=== PATIENT | male | born 1950 | race African-American/Black ===

== ENCOUNTER 2017-02-10 18:18 | Inpatient (IN) | payer MEDICARE, OTHER ==
[~2017-02-10] VITALS: Ht 188 cm; Wt 113.9 kg
[~2017-02-10 18:18] MED LIST: GLIP1TAB5 PO; HYDR-2726 PO; PIOG30TA PO; SITA100T8 PO
[2017-02-10 18:38] VITALS: BP 163/90
--- NOTE | 2017-02-10 19:19 | NUR ---
AMBULATED TO ER BED 2
--- NOTE | 2017-02-10 19:20 | NUR ---
66 Y/O M W/C/O CHEST/L NECK/L UPPER BACK PAIN SINCE THIS MORNING. MED HX CHRONIC BACK/NECK PAIN, HTN, AND DM. VSS, SINUS RHYTHM, ER MD MADE AWARE.
[2017-02-10] MEDS ORDERED: ASPIRIN 81 MG TAB.CHEW PO ONE (20:00)
[2017-02-10] MEDS ORDERED: NITROGLYCERIN 2% 1 GM PKT TP ONE (20:00)
[2017-02-10] MEDS ORDERED: NACL 0.9% 1,000 ML IV ONE (20:00)
[2017-02-10 20:30] LABS: MEAN CORPUSCULAR HEMOGLOBIN 24 pg (27-31)
[2017-02-10] MEDS ORDERED: MORPHINE SULFATE 2 MG/ML SYR IVP ONE (20:35)
[2017-02-10 20:36] LABS: HEMATOCRIT 42.5 % (36-52); HEMOGLOBIN 13.1 g/dL (12.0-18.0); MEAN CORPUSCULAR HGB CONC 31 g/dL (33-37); MEAN CORPUSCULAR VOLUME 79 fL (80-94); PLATELET COUNT (AUTO) 214 K/uL (140-450); RED BLOOD CELL COUNT(AUTO) 5.37 MIL/uL (4.20-6.10); RED CELL DISTRIBUTION WIDTH 17.4 % (11.6-13.7); WHITE BLOOD COUNT (AUTO) 5.7 K/uL (4.8-10.8)
[2017-02-10] MEDS ORDERED: ONDANSETRON 4 MG/2 ML VIAL IVP ONE (20:40)
[2017-02-10 20:46] LABS: ANION GAP 13.9 (8-16); CARBON DIOXIDE 25.5 mmol/L (21-32); CREATININE 1.4 mg/dL (0.7-1.3); POTASSIUM 4.4 mmol/L (3.5-5.1)
[2017-02-10] MEDS ORDERED: MORPHINE SULFATE 4 MG/ML SYR ONE (20:46)
[2017-02-10 20:47] LABS: TOTAL BILIRUBIN 0.2 mg/dL (0.0-1.0)
[2017-02-10 20:48] LABS: PROTHROMBIN TIME 10.2 secs (10.8-13.4)
[2017-02-10 21:02] LABS: BASOPHILS % (MANUAL) 0 % (0-2); EOSINOPHILS % (MANUAL) 0 % (0-4); LYMPHOCYTES % (MANUAL) 29 % (20-46); MONOCYTES % (MANUAL) 4 % (5-12)
--- NOTE | 2017-02-10 21:35 | NUR ---
PT RESTING IN BED ON MONITOR, NO S/S OF DISTRESS BUT STATES HIS BACK PAIN IS COMING BACK. PT DENIES ANY CHEST PAIN. ER MD MADE AWARE.
--- NOTE | 2017-02-10 21:58 | NUR ---
Patient will be admitted to care of DR BARILLAS. Admited to TELEMETRY. Will go to [id number]. Belongings list completed. Report to CHRISTIANA MTZ.
[2017-02-10] MEDS ORDERED: INSULIN LISPRO SLIDING SCALE 100 UNITS/ML VIAL SUBQ PRN (22:00)
[2017-02-10] MEDS ORDERED: DEXTROSE 50% 50 ML SYR IVP PRN (22:00)
[2017-02-10] MEDS ORDERED: cloNIDine 0.1 MG TAB PO PRN (22:00)
--- NOTE | 2017-02-10 22:12 | NUR ---
PT TRANSFERED TO FLOOR VIA GURNEY. OCCUPATIONAL HEALTH AND SAFETY OFFICER IN BED. NO S/S OF DISTRESS NOTED DURING TRANSFER. ACCOMPANIED BY RN AND EMT.
--- NOTE | 2017-02-10 22:30 | NUR ---
PT ARRIVED FROM ER VIA GURNEY. PT IS AAOX4, ON 02 2L VIA CA. NO SIGNS OF ACUTE DISTRESS NOTED. PT DENIES ANY CHEST PAIN AT THIS TIME. BOWEL SOUNDS ACTIVE IN ALL FOUR QUADRANTS. IV ACCESS IS INTACT, PATENT AND ASYMPTOMATIC RUNNING NS. PT IS AMBULATORY WITH BP. BELONGINGS LIST CHECKED. PLAN OF CARE DISCUSSED, PT VERBALIZED UNDERSTANDING. BED IN LOW POSITION, BILATERAL HALF SIDE RAILS UP, CALL LIGHT WITHIN REACH, WILL CONTINUE TO MONITOR.
--- NOTE | 2017-02-10 22:35 | NUR ---
ADMISSION VITAL SIGNS: T 98.8, BP 135/81, HR 79, O2 95, RR 20
[2017-02-10] MEDS: MORPHINE SULFATE 2 MG/ML SYR IVP PRN (23:39)
[2017-02-11] VITALS: BP 146/77
[2017-02-11] MEDS: HYDROcodone/APAP 10/325 MG 1 TAB TAB PO PRN ×2 (01:50→07:51)
[2017-02-11] MEDS: MORPHINE SULFATE 2 MG/ML SYR IVP PRN ×2 (03:49→11:45)
[2017-02-11 04:00] VITALS: BP 136/86
--- NOTE | 2017-02-11 05:34 | NUR ---
PT IS SITTING UP IN BED, WATCHING TV. NO SIGNS OF ACUTE DISTRESS. BED IN LOW POSITION, BILATERAL HALF SIDE RAILS UP, CALL LIGHT WITHIN REACH, WILL CONTINUE TO MONITOR.
[2017-02-11 05:58] LABS: BASOPHILS # (AUTO) 0.2 K/uL (0.00-0.22); BASOPHILS % (AUTO) 3.4 % (0.0-2.0); EOSINOPHILS # (AUTO) 0.2 K/uL (0-0.4); EOSINOPHILS % (AUTO) 3.2 % (0.0-4.0); HEMATOCRIT 42.9 % (36-52); HEMOGLOBIN 13.5 g/dL (12.0-18.0); LYMPHOCYTES # (AUTO) 2.1 K/uL (2.0-11.5); MEAN CORPUSCULAR HEMOGLOBIN 25 pg (27-31); MEAN CORPUSCULAR HGB CONC 32 g/dL (33-37); MEAN CORPUSCULAR VOLUME 79 fL (80-94); MONOCYTES # (AUTO) 0.5 K/uL (0.8-1.0); MONOCYTES % (AUTO) 7.7 % (1.7-9.3); NEUTROPHILS # (AUTO) 3.4 K/uL (1.8-7.7); NEUTROPHILS % (AUTO) 52.7 % (42.2-75.2); PLATELET COUNT (AUTO) 205 K/uL (140-450); RED BLOOD CELL COUNT(AUTO) 5.46 MIL/uL (4.20-6.10); RED CELL DISTRIBUTION WIDTH 17.2 % (11.6-13.7); WHITE BLOOD COUNT (AUTO) 6.4 K/uL (4.8-10.8)
[2017-02-11 06:13] LABS: ANION GAP 12.3 (8-16); CARBON DIOXIDE 26.9 mmol/L (21-32); CREATININE 1.4 mg/dL (0.7-1.3); POTASSIUM 4.2 mmol/L (3.5-5.1)
--- NOTE | 2017-02-11 06:40 | NUR ---
PAGED DR CHIN. REGARDING PT HIGH PAIN LEVEL 12/16, PT STATES HE HAS SEVERE NECK PAIN WITH HEADACHE. ALREADY GAVE ORDERED PRN MEDICATION FOR PAIN INCLUDING NORCO AT 0150 AND MORPHINE AT 0349. PT IS ASKING FOR TORADOL IN ADDITION TO MORPHINE. EXPLAINED TO PT WOULD BE PAGED AND WILL HAVE TO WAIT FOR CALL BACK TO RECEIVE NEW ORDERS. WILL AWAIT CALLBACK.
--- NOTE | 2017-02-11 06:45 | NUR ---
DR EMERSON CALLED BACK. NOTIFIED DR OF PT REQUEST FOR ADDITIONAL PAIN MEDICATION BECAUSE MORPHINE IS NOT HELPING WITH PAIN. DR EMERSON STATED HE WILL NOT CHANGE ANY ORDERS OR PUT IN NEW ORDERS BECAUSE DR CHIN WILL BE IN THIS MORNING TO DO HIS ROUNDS AND EVALUATE PT, DR CHIN CAN THEN DECIDE IF HE WANTS TO MAKE ANY CHANGES TO ORDERS. PT MADE AWARE AND UNDERSTANDS DR CHIN WILL BE IN THIS MORNING TO EVALUATE HIM AND THEN DECIDE ON ANY NEW ORDERS. PT VERBALIZED UNDERSTANDING.
[2017-02-11] MEDS: BLOOD GLUCOSE MONITORING 1 DEV DEV FS SCH ×2 (06:46→11:51)
--- NOTE | 2017-02-11 07:10 | NUR ---
ENDORSED PT TO AM NURSE FOR CONTINUITY OF CARE. PT IS IN STABLE CONDITION.
--- NOTE | 2017-02-11 07:15 | NUR ---
RECEIVED REPORT FROM THE AUTOMOTIVE PARTS SALESPERSON NURSE AT BEDSIDE FOR CONTINUITY OF CARE. PT IS AWAKE AND ORIENTED. INTRODUCED MYSELF AND UPDATED THE BOARD. PT IS C/O PAIN AND HASN'T SLEPT AT ALL LAST NIGHT. WOULD LIKE SOMETHING TO SLEEP. NOTIFIED PT THAT DR. CHIN WILL BE IN THIS MORNING AND HE WILL REASSESS HIM AND WILL PUT IN ORDERS. PT IS AWARE AND IN AGREEMENT. IV PUMP HAS BEEN BEEPING ALL NIGHT AND HE WOULD LIKE A NEW IV PUT IN. STOPPED THE IVF. WILL RESTART ONCE I PUT IN ANOTHER IV. WILL BE BACK TO ASSESS PT.
[2017-02-11 08:00] VITALS: BP 158/99
--- NOTE | 2017-02-11 08:00 | NUR ---
V/S WITHIN NORMAL LIMITS. BP SLIGHTLY ELEVATED 158/99. PRN CATAPRES IN EMAR. WILL ADMINISTER WITH MORNING MEDS. STATED THAT HE IS A DIABETIC. ONLY CARDIAC DIET WAS PUT IN. WILL ADD CCHO. SCD'S REMOVED. PT NEEDED TO USE THE RESTROOM. WILL CONTINUE TO MONITOR PT.
--- NOTE | 2017-02-11 08:40 | NUR ---
ADMINISTERED MORNING MEDS. PT TOLERATED WELL. STARTED A NEW IV ON L HAND 22G NS AT 100ML.
--- NOTE | 2017-02-11 08:58 | NUR ---
PATIENT HAS BEEN SCREENED AND CATEGORIZED MODERATE NUTRITION RISK. PATIENT WILL BE SEEN WITHIN 3-5 DAYS OF ADMISSION. 02/13/17-02/15/[address]
[2017-02-11] MEDS ORDERED: HYDROCHLOROTHIAZIDE PO SCH (09:00)
[2017-02-11] MEDS ORDERED: GLIPIZIDE PO SCH (09:00)
[2017-02-11] MEDS ORDERED: [UNRECOGNIZED DRUG - OTHER] PO SCH (09:00)
[2017-02-11] MEDS ORDERED: METFORMIN HCL PO SCH (09:00)
[2017-02-11] MEDS ORDERED: OLMESARTAN PO SCH (09:00)
[2017-02-11] MEDS ORDERED: PIOGLITAZONE 30 MG TAB PO SCH (09:00)
--- NOTE | 2017-02-11 10:05 | NUR ---
PT IN BED. WONDERING WHEN DR WILL BE HERE. HE WANTED TO GO OVER HIS PAIN MANAGEMENT. IT IS NOT BEING MANAGED WELL HERE PER PT. WILL AWAIT 'S ARRIVAL. WILL CONTINUE TO MONITOR PT.
[2017-02-11] MEDS ORDERED: HYDROCHLOROTHIAZIDE 25 MG TAB PO SCH (10:35)
[2017-02-11] MEDS ORDERED: LOSARTAN 50 MG TAB PO SCH (10:35)
[2017-02-11] MEDS ORDERED: ACETAMINOPHEN EXTRA STRENGTH 500 MG TAB PO PRN (11:00)
[2017-02-11 12:00] VITALS: BP 116/76
[2017-02-11] MEDS ORDERED: metFORMIN 500 MG TAB PO SCH (12:00)
[2017-02-11] MEDS ORDERED: glipiZIDE 5 MG TAB PO SCH (12:00)
--- NOTE | 2017-02-11 12:48 | NUR ---
DR. CHIN HERE TO ASSESS PT.
[2017-02-11] MEDS ORDERED: NAPR500T1 PO (13:16)
[2017-02-11] MEDS ORDERED: oxyCODONE 10 MG TABER PO PRN (13:25)
[2017-02-11] MEDS ORDERED: PANTOPRAZOLE 40 MG TABEC PO SCH (13:28)
--- NOTE | 2017-02-11 14:59 | NUR ---
CM NOTE INITIAL REVIEW FAXED TO [facility] / FAX# [phone], ATTN: NICOLÁS #[phone]
[2017-02-11] MEDS ORDERED: INFLUENZA VIRUS VACCINE QUAD 0.5 ML SYR IMVAC SCH (15:15)
--- NOTE | 2017-02-11 15:34 | NUR ---
3RD TROPONIN NEGATIVE. D/C ORDERS IN PLACE. ADMINISTERED FLU VACCINATION, L DELTOID. PT TOLERATED WELL. REMOVED IV, CANNULA INTACT. NO BLEEDING NOTED. REMOVED ID BANDS. PT WILL GET DRESSED. GET PERSONAL BELONGINGS TOGETHER. CALLED DAUGHTER FOR LIBRARY DIRECTOR.
--- NOTE | 2017-02-11 15:52 | NUR ---
DISCHARGE INSTRUCTIONS GIVEN. PT VERBALIZED UNDERSTANDING. PT IS STABLE. READY TO GO. JUST WAITING ON TRANSPORTATION. WILL LET US KNOW WHEN SHE ARRIVES.
--- NOTE | 2017-02-11 16:00 | NUR ---
ENDORSED PT TO CHRISTIANA PAULINO AND CHRISTIANA GOFF. PT IN STABLE CONDITION. JUST WAITING FOR RIDE. ALL READY TO GO.
--- NOTE | 2017-02-11 16:30 | NUR ---
PT'S RIDE HOME IS HERE, PT ESCORTED OUT TO FRONT OF HOSPITAL, AMBULATES WELL WITH STEADY GAIT, DC HOME NOW WITH FAMILY.
[2017-02-11] MEDS ORDERED: NAPROXEN 500 MG TAB PO SCH (21:00)
[2017-02-12] MEDS ORDERED: PANTOPRAZOLE 40 MG TABEC PO SCH (09:00)
[2017-02-12] MEDS ORDERED: LOSARTAN 50 MG TAB PO SCH (09:00)
[2017-02-12] MEDS ORDERED: HYDROCHLOROTHIAZIDE 25 MG TAB PO SCH (09:00)
== END 2017-02-11 16:30 | disposition home or self-care (01) | DRG 206 ==
LOC: MED 18:18 → MTU 21:56
PROVIDERS: ADMIT Hospitalist; ATTEND Hospitalist
PROC: 3E0234Z Introduction of Serum, Toxoid and Vaccine into Muscle, Percutaneous Approach (ICD-10-PCS; principal; 2017-02-09)
DX: M94.0 Chondrocostal junction syndrome [Tietze] (principal); N17.9 Acute kidney failure, unspecified; E11.22 Type 2 diabetes mellitus with diabetic chronic kidney disease; I12.9 Hypertensive chronic kidney disease with stage 1 through stage 4 chronic kidney disease, or unspecified chronic kidney disease; N18.9 Chronic kidney disease, unspecified; Z23 Encounter for immunization; M51.9 Unspecified thoracic, thoracolumbar and lumbosacral intervertebral disc disorder; Z79.899 Other long term (current) drug therapy
CPT/HCPCS: 36415; 71010; 80048; 80053; 82948; 83880; 84484; 85025; 85610; 85730; 87081; 90658; 93005; 96361; 96374; 96375; 99285; J2270; J2405; J7030; Q0092

== ENCOUNTER 2017-02-25 23:02 | Emergency (ER) | payer MEDICARE, OTHER ==
[~2017-02-25] VITALS: Ht 188 cm; Wt 117.5 kg
[~2017-02-25 23:02] MED LIST changes: +NAPR500T1 PO
[2017-02-25 23:08] VITALS: BP 164/91
--- NOTE | 2017-02-25 23:14 | NUR ---
AMBULATED TO ER BED 11
--- NOTE | 2017-02-25 23:20 | NUR ---
Patient being evaluated by at bedside.
--- NOTE | 2017-02-25 23:30 | NUR ---
67 Y/M PT. PRESENTS TO ED WITH C/O EDEMA TO LOWER EXTREMITIES/CHEST PAIN. PT REFERRED BY PMD TO COME TO ER. MED HX HTN, DM, CHRONIC BACK PAIN. AAO X4, AMBULATORY WITH STEADY GAIT. RESPIRATIONS ROOM AIR, EVEN AND UNLABORED. BL LUNG CLEAR. SKIN WARM AND DRY. BLE SWELLING. C/O CHETS PAIN 11/15. VSS, ER MD MADE AWARE OF PT. STATUS.
[2017-02-25] MEDS ORDERED: ASPIRIN 325 MG TAB PO ONE (23:40)
[2017-02-25] MEDS ORDERED: NITROGLYCERIN 0.4 MG TAB SL ONE (23:40)
[2017-02-25 23:55] LABS: BASOPHILS # (AUTO) 0.1 K/uL (0.00-0.22); BASOPHILS % (AUTO) 1.1 % (0.0-2.0); EOSINOPHILS # (AUTO) 0.1 K/uL (0-0.4); EOSINOPHILS % (AUTO) 1.6 % (0.0-4.0); HEMATOCRIT 37.7 % (36-52); HEMOGLOBIN 11.9 g/dL (12.0-18.0); LYMPHOCYTES # (AUTO) 1.5 K/uL (2.0-11.5); LYMPHOCYTES % (AUTO) 31.3 % (20.5-51.1); MEAN CORPUSCULAR HEMOGLOBIN 25 pg (27-31); MEAN CORPUSCULAR HGB CONC 32 g/dL (33-37); MEAN CORPUSCULAR VOLUME 79 fL (80-94); MONOCYTES # (AUTO) 0.3 K/uL (0.8-1.0); MONOCYTES % (AUTO) 5.8 % (1.7-9.3); NEUTROPHILS # (AUTO) 2.7 K/uL (1.8-7.7); NEUTROPHILS % (AUTO) 60.2 % (42.2-75.2); PLATELET COUNT (AUTO) 191 K/uL (140-450); RED BLOOD CELL COUNT(AUTO) 4.77 MIL/uL (4.20-6.10); WHITE BLOOD COUNT (AUTO) 4.7 K/uL (4.8-10.8)
[2017-02-26 00:05] LABS: ANION GAP 12.8 (8-16); CARBON DIOXIDE 27.2 mmol/L (21-32); CREATININE 1.5 mg/dL (0.7-1.3)
[2017-02-26 00:11] LABS: ALBUMIN 3.9 g/dL (3.4-5.0); TOTAL BILIRUBIN 0.2 mg/dL (0.0-1.0)
[2017-02-26 00:19] LABS: CREATINE KINASE MB 13.5 ng/mL (0-3.6)
[2017-02-26] MEDS ORDERED: KETOROLAC 30 MG/ML VIAL IVP ONE (00:40)
[2017-02-26] MEDS ORDERED: KETOROLAC 30 MG/ML VIAL ONE (00:49)
[2017-02-26 01:00] VITALS: BP 141/77
--- NOTE | 2017-02-26 01:00 | NUR ---
Patient discharged with v/s stable. Written and verbal after care instructions given and explained. Patient verbalized understanding. Ambulatory with steady gait. All questions addressed prior to discharge. Advised to follow up with PMD.
== END 2017-02-26 01:00 | disposition home or self-care (01) ==
LOC: MED 23:02
DX: R60.0 Localized edema (principal); E11.9 Type 2 diabetes mellitus without complications; I10 Essential (primary) hypertension; Z85.46 Personal history of malignant neoplasm of prostate; Z79.899 Other long term (current) drug therapy
CPT/HCPCS: 36415; 71010; 80053; 82550; 82553; 82948; 83690; 83880; 84484; 85025; 93005; 96374; 99285; J1885

== ENCOUNTER 2017-05-20 21:47 | Emergency (ER) | payer MEDICARE, OTHER ==
[~2017-05-20] VITALS: Ht 188 cm; Wt 119.4 kg
[~2017-05-20 21:47] MED LIST changes: +NAPR-54 PO; -NAPR500T1 PO
[2017-05-20 21:55] VITALS: BP 156/73
--- NOTE | 2017-05-20 22:02 | NUR ---
pt ambulated to er bed 03
[2017-05-20] MEDS ORDERED: CEPHALEXIN SUSP. 250 MG/5 ML PO ONE (23:20)
[2017-05-20] MEDS: CLINDAMYCIN 150 MG CAP PO ONE (23:36)
--- NOTE | 2017-05-20 23:41 | NUR ---
PT PRESENTS WITH L LEG PAIN REFERRED FROM PCP R/O DVT OF L LEG. L LEG IS REDENED TO FRONT AND BACK OF CALF, NO SWELLING NOTED AT THIS TIME. SKIN IS WARM AND DRY TO TOUCH, SKIN IS INTACT. CALF AREA IS TENDER TO PALPATION. POSITIVE CMS. PT STATES HE WAS GIVEN CIPRO FROM PODIASTRI[facility], PT STATES HES BEEN "TAKING IT OFF AND ON." PMH HTN, CRONIC NECK AND BACK PAIN, DM NKA
[2017-05-21 00:05] VITALS: BP 132/78
--- NOTE | 2017-05-21 00:07 | NUR ---
Patient discharged with v/s stable. Written and verbal after care instructions given and explained. Patient alert, oriented and verbalized understanding of instructions. Ambulatory with steady gait. All questions addressed prior to discharge. ID band removed. Patient advised to follow up with PMD. Rx of KEFLEX 500 MG, CLINDAMYCIN 300MG given. Patient educated on indication of medication including possible reaction and side effects. Opportunity to ask questions provided and answered.
== END 2017-05-21 00:07 | disposition home or self-care (01) ==
LOC: MED 21:47
DX: L03.116 Cellulitis of left lower limb (principal); I10 Essential (primary) hypertension; E11.9 Type 2 diabetes mellitus without complications; Z85.46 Personal history of malignant neoplasm of prostate; Z79.899 Other long term (current) drug therapy
CPT/HCPCS: 93971; 99284; Q0092

== ENCOUNTER 2017-05-31 21:00 | Emergency (ER) | payer MEDICARE, OTHER ==
[~2017-05-31] VITALS: Ht 188 cm; Wt 161.0 kg
[2017-05-31 21:10] VITALS: BP 162/90
--- NOTE | 2017-05-31 21:17 | NUR ---
PT. AMBULATED TO ER BED 4
--- NOTE | 2017-05-31 21:20 | NUR ---
67/M CAME IN W C/O CELLULITIS TO BLE. PT REPORTS HE WAS SEEN ON 05/20/17 FOR SIMILAR SYMPTOM ON RLE AND WAS GIVEN ANTIBIOTICS. PT REPORTS NO RELIEF AND REPORTS HAS STOPPED TAKING ANTIBIOTICS D/T " IT CAUSES BURNING IN MY STOMACH". BLE NOTED WITH MILD ERYTHEMA, NONPITTING EDEMA, +PMSC. SKIN INTACT AND DRY, WARM TO TOUCH. PMH: HTN, DM, CHRONIC BACK PAIN
--- NOTE | 2017-05-31 22:05 | NUR ---
Patient discharged with v/s stable. Written and verbal after care instructions given and explained. Patient alert, oriented and verbalized understanding of instructions. Ambulatory with steady gait. All questions addressed prior to discharge. ID band removed. Patient advised to follow up with PMD. Rx of ZOFRAN ODT AND BACTRIM DS given. Patient educated on indication of medication including possible reaction and side effects. Opportunity to ask questions provided and answered.
[2017-05-31 22:07] VITALS: BP 132/86
== END 2017-05-31 22:05 | disposition home or self-care (01) ==
LOC: MED 21:00
DX: L03.116 Cellulitis of left lower limb (principal); L03.115 Cellulitis of right lower limb; E11.9 Type 2 diabetes mellitus without complications; I10 Essential (primary) hypertension; Z79.899 Other long term (current) drug therapy; Z85.46 Personal history of malignant neoplasm of prostate
CPT/HCPCS: 82948; 99283

== ENCOUNTER 2017-09-27 16:39 | Emergency (ER) | payer MEDICARE, OTHER ==
[~2017-09-27] VITALS: Ht 188 cm; Wt 63.5 kg
[2017-09-27 16:48] VITALS: BP 128/79
--- NOTE | 2017-09-27 16:55 | NUR ---
PT AMBULATES TO BED 11
--- NOTE | 2017-09-27 17:24 | NUR ---
PT C/O LOWER BACK PAIN ON RT SIDE RADIATING TO BILAT LEGS SUDDEN ONSET SINCE THIS MORNING. PT WITH H/O CHRONIC BACK PAIN. DENIES STRAIN OR INJUIRY RECENTLY. NON TENDER TO PALPATE, NO BRUISING OR DEFORMITY. NAD NOTEDE/STATED OTHERWISE, PENDING MD STALEY
--- NOTE | 2017-09-27 17:35 | NUR ---
DR CAMP AT BEDSIDE TO REBEKA
[2017-09-27] MEDS ORDERED: HYDROmorphone PFS 2 MG/ML SYR IM ONE (17:40)
[2017-09-27] MEDS ORDERED: LORazepam 1 MG TAB PO ONE (18:55)
--- NOTE | 2017-09-27 18:55 | NUR ---
PER DR CAMP, PT IS TO RECEIVE 2MG ATIVAN PO AND THEN BE DC'D.
[2017-09-27 19:02] VITALS: BP 121/71
== END 2017-09-27 19:03 | disposition home or self-care (01) ==
LOC: MED 16:39
DX: M54.40 Lumbago with sciatica, unspecified side (principal); I10 Essential (primary) hypertension; E11.9 Type 2 diabetes mellitus without complications; Z85.46 Personal history of malignant neoplasm of prostate; Z79.899 Other long term (current) drug therapy
CPT/HCPCS: 82948; 96372; 99283; J1170

== ENCOUNTER 2017-11-10 14:12 | Inpatient (IN) | payer MEDICARE, OTHER ==
[~2017-11-10] VITALS: Ht 188 cm; Wt 115.7 kg
[2017-11-10 14:35] VITALS: BP 155/91
--- NOTE | 2017-11-10 14:35 | NUR ---
PT AMBULATES TO BED 7
--- NOTE | 2017-11-10 14:40 | NUR ---
67Y/F C/O GENERAL WEAKNESS. PT STATES" HE IS FEELING WEAK ALMOST FELL AT AROUND 0830 THIS MORNING. NUMBNESS LT.ARM,HEADACHE,LT. LEG SWELLING.LOSING BALANCE THIS MORNING. NO FACIAL DROOP.LT. ARM WEAKNESS FROM NECK NERVE DAMAGE PER PATIENT." PT HAS SPEECH CLEAR. ER MD AWARE OF PT STATUS. PT'S SKIN IS PINK/WARM/DRY; AAOX4; LUNGS CLEAR BL; HR EVEN AND REGULAR; PT DENIES ANY PATIENT STATES PAIN OF 9/10 AT THIS TIME; VSS; PATIENT POSITIONED FOR COMFORT; HOB ELEVATED; BEDRAILS UP X1; BED DOWN. HX: HTN,DM,CHRONIC BACK PAIN PAIN/NECK
[2017-11-10] MEDS ORDERED: NACL 0.9% 1,000 ML IV SCH (15:06)
[2017-11-10] MEDS ORDERED: ACET-2869 PO (15:11)
[2017-11-10] MEDS ORDERED: GLIP10TA3 PO (15:11)
[2017-11-10] MEDS ORDERED: OXYC5TAB4 PO (15:11)
[2017-11-10] MEDS ORDERED: LOVA20TA8 PO (15:11)
[2017-11-10] MEDS ORDERED: LOSA50TA39 PO (15:11)
[2017-11-10 15:41] LABS: BASOPHILS % (AUTO) 0.4 % (0.0-2.0); EOSINOPHILS % (AUTO) 1.1 % (0.0-4.0); HEMATOCRIT 38.6 % (36-52); HEMOGLOBIN 12.3 g/dL (12.0-18.0); LYMPHOCYTES # (AUTO) 0.9 K/uL (2.0-11.5); LYMPHOCYTES % (AUTO) 29.6 % (20.5-51.1); MEAN CORPUSCULAR HEMOGLOBIN 26 pg (27-31); MEAN CORPUSCULAR HGB CONC 32 g/dL (33-37); MEAN CORPUSCULAR VOLUME 80.4 fL (80-94); MONOCYTES # (AUTO) 0.3 K/uL (0.8-1.0); MONOCYTES % (AUTO) 10.7 % (1.7-9.3); NEUTROPHILS # (AUTO) 1.9 K/uL (1.8-7.7); NEUTROPHILS % (AUTO) 58.2 % (42.2-75.2); PLATELET COUNT (AUTO) 161 K/uL (140-450); RED CELL DISTRIBUTION WIDTH 16.9 % (11.6-13.7); WHITE BLOOD COUNT (AUTO) 3.2 K/uL (4.8-10.8)
--- NOTE | 2017-11-10 16:00 | NUR ---
DR FELDER EVALUATING AT BEDSIDE
[2017-11-10 16:20] LABS: ANION GAP 13.7 (8-16); CARBON DIOXIDE 26.1 mmol/L (21-32); CREATININE 1.4 mg/dL (0.7-1.3); POTASSIUM 3.8 mmol/L (3.5-5.1)
[2017-11-10 16:26] LABS: ALBUMIN 3.9 g/dL (3.4-5.0); TOTAL BILIRUBIN 0.3 mg/dL (0.0-1.0)
[2017-11-10 16:28] LABS: APPEARANCE,URINE CLEAR (CLEAR); BILIRUBIN,URINE NEGATIVE (NEGATIVE); BLOOD, URINE TRACE-L (NEGATIVE); COLOR,URINE YELLOW (YELLOW); LEUKOCYTE ESTERASE ,URINE NEGATIVE (NEGATIVE); NITRITE, URINE NEGATIVE (NEGATIVE); UGLUCOSE 3+ (NEGATIVE)
[2017-11-10] MEDS ORDERED: PIPERACILLIN/TAZOBACTAM 3.375 GM in DEXTROSE 5% 50 ML IV ONE (16:30)
[2017-11-10 16:35] LABS: RBC,URINE 3-10 (FEW) /HPF (0-5); WBC,URINE 0-5 (RARE) /HPF (0-5)
[2017-11-10] MEDS ORDERED: PIPERACILLIN/TAZOBACTAM 3.375 GM VIAL IV ONE ×2 (16:38→21:43)
[2017-11-10] MEDS ORDERED: HYDROmorphone PFS 2 MG/ML SYR IVP ONE (17:30)
--- NOTE | 2017-11-10 19:16 | NUR ---
GOT REPORT FROM CHRISTIANA STEARNS. PT AAO X4, GCS 15. RESPIRATIONS EVEN AND UNLABORED, LT. LEG CELLULITIS. VSS, NO ACUTE DISTRESS. WILL CONTINUE TO MONITOR.
--- NOTE | 2017-11-10 19:30 | NUR ---
Patient will be admitted to care of . Admited to M/S. Will go to room 105B. Belongings list completed. Report to CHRISTIANA VERDIN.
[2017-11-10 19:35] VITALS: BP 153/81
--- NOTE | 2017-11-10 19:35 | NUR ---
PT ARRIVED ONTO UNIT VIA GURNEY BY ER NURSE. PT AOX4, ON ROOM AIR, WITH IV ON LEFT HAND #22G. SKIN INTACT WITH REDNESS ON LEFT LEG-CELLULITIS. AMBULATORY-HOLDS ONTO FURNITURE TO STAY BALANCED. HISTORY OF FALLS. 2GM SODIUM DIET. DISCUSSED PLAN OF CARE AND PT VERBALIZED UNDERSTANDING. NO S/S OF RESPIRATORY DISTRESS OR DISCOMFORT NOTED AT THIS TIME. WHITE BOARD UPDATED. ORIENTED PT TO ROOM, RESTROOM, BED, CALL LIGHT, PHONE. YELLOW SOCKS ON, YELLOW ID BAND AND FALLING STAR ON DOOR. ALLERGY BAND ALSO ON- MORPHINE ALLERGY. BED IN LOWEST POSITION, BED BREAKS ON AND BOTH SIDE RAILS UP. BED SIDE TABLE AND CALL LIGHT ARE WITHIN REACH. WILL CONTINUE TO MONITOR.
--- NOTE | 2017-11-10 19:35 | NUR ---
MRSA COLLECTED. BLOOD GLUCOSE 144-NO INSULIN COVERAGE NEEDED.
[2017-11-10] MEDS ORDERED: ONDANSETRON 4 MG/2 ML VIAL IVP PRN (20:40)
[2017-11-10] MEDS ORDERED: DEXTROSE 50% 50 ML SYR IVP PRN (20:40)
[2017-11-10] MEDS ORDERED: INSULIN LISPRO SLIDING SCALE 100 UNITS/ML VIAL SUBQ PRN (20:40)
[2017-11-10] MEDS ORDERED: HYDROmorphone 1 MG/ML AMP IVP PRN (20:40)
[2017-11-10] MEDS: BLOOD GLUCOSE MONITORING 1 DEV DEV FS SCH (21:00)
[2017-11-10] MEDS ORDERED: PIPERACILLIN/TAZOBACTAM 3.375 GM in DEXTROSE 5% 50 ML IV SCH (21:00)
[2017-11-10] MEDS: NACL 0.9% 1,000 ML IV SCH (21:45)
[2017-11-10] MEDS: glipiZIDE 10 MG TAB PO SCH (21:45)
[2017-11-10] MEDS: NAPROXEN 500 MG TAB PO SCH (21:45)
[2017-11-10] MEDS: HYDROcodone/APAP 5/325 MG 1 TAB TAB PO PRN (21:45)
--- NOTE | 2017-11-10 21:45 | NUR ---
SCHEDULED MEDICATION GIVEN AND TOLERATED WELL. PT C/O PAIN 07/16 AND MEDICATED WITH NORCO. PT TOLERATED WELL. NO S/S OF RESPIRATORY DISTRESS OR DISCOMFORT NOTED AT THIS TIME. WILL CONTINUE TO MONITOR.
[2017-11-11] MEDS ORDERED: PIPERACILLIN/TAZOBACTAM 3.375 GM in DEXTROSE 5% 50 ML IV SCH ×2
--- NOTE | 2017-11-11 | NUR ---
VITAL SIGHS TAKEN AND TOLERATED WELL. NO S/S OF RESPIRATORY DISTRESS OR DISCOMFORT NOTED AT THIS TIME. WILL CONTINUE TO MONITOR.
--- NOTE | 2017-11-11 00:20 | NUR ---
SCHEDULED MEDICATION ZOSYN GIVEN AND TOLERATED WELL. NO S/S OF RESPIRATORY DISTRESS OR DISCOMFORT NOTED AT THIS TIME. WILL CONTINUE TO MONITOR.
[2017-11-11] MEDS ORDERED: ZOLPIDEM 10 MG TAB PO PRN (00:40)
[2017-11-11] MEDS ORDERED: ACETAMINOPHEN 325 MG TAB PO PRN (00:40)
--- NOTE | 2017-11-11 01:35 | NUR ---
PT C/O INSOMNIA AND REQUESTING SLEEPING AID. CALLED DR. CRAIG AND WAS ORDERED AMBIEN 10MG FOR INSOMNIA. ALSO ORDERED TYLENOL 650MG FOR FEVER ABOVE 100 DEGREES F. AMBIEN GIVEN FOR INSOMNIA AND TOLERATED WELL. NO S/S OF RESPIRATORY DISTRESS OR DISCOMFORT NOTED AT THIS TIME. WILL CONTINUE TO MONITOR.
--- NOTE | 2017-11-11 02:00 | NUR ---
PT RESTING IN BED AT THIS TIME. NO S/S OF RESPIRATORY DISTRESS OR DISCOMFORT NOTED AT THIS TIME. WILL CONTINUE TO MONITOR.
--- NOTE | 2017-11-11 04:00 | NUR ---
PT RESTING IN BED AT THIS TIME. NO S/S OF RESPIRATORY DISTRESS OR DISCOMFORT NOTED AT THIS TIME. WILL CONTINUE TO MONITOR.
[2017-11-11] MEDS: NACL 0.9% 1,000 ML IV SCH ×3 (07:00→22:04)
[2017-11-11] MEDS: BLOOD GLUCOSE MONITORING 1 DEV DEV FS SCH ×4 (07:05→21:00)
[2017-11-11 07:15] LABS: BASOPHILS % (AUTO) 0.3 % (0.0-2.0); EOSINOPHILS % (AUTO) 1.3 % (0.0-4.0); HEMATOCRIT 37.4 % (36-52); LYMPHOCYTES # (AUTO) 0.8 K/uL (2.0-11.5); LYMPHOCYTES % (AUTO) 30.8 % (20.5-51.1); MEAN CORPUSCULAR HEMOGLOBIN 26 pg (27-31); MEAN CORPUSCULAR HGB CONC 32 g/dL (33-37); MEAN CORPUSCULAR VOLUME 80.9 fL (80-94); MONOCYTES # (AUTO) 0.4 K/uL (0.8-1.0); MONOCYTES % (AUTO) 13.8 % (1.7-9.3); NEUTROPHILS # (AUTO) 1.5 K/uL (1.8-7.7); NEUTROPHILS % (AUTO) 53.8 % (42.2-75.2); PLATELET COUNT (AUTO) 142 K/uL (140-450); RED BLOOD CELL COUNT(AUTO) 4.63 MIL/uL (4.20-6.10); RED CELL DISTRIBUTION WIDTH 17.1 % (11.6-13.7); WHITE BLOOD COUNT (AUTO) 2.7 K/uL (4.8-10.8)
[2017-11-11 07:22] LABS: ANION GAP 10.5 (8-16); CARBON DIOXIDE 28.5 mmol/L (21-32); CREATININE 1.4 mg/dL (0.7-1.3)
--- NOTE | 2017-11-11 07:40 | NUR ---
ENDORSED PT CARE TO DAY SHIFT NURSE JOSE-RN FOR CONTINUITY OF CARE.
--- NOTE | 2017-11-11 07:41 | NUR ---
RECEIVED BEDSIDE REPORT FROM ELECTRIC MOTOR REBUILDER NURSE. PATIENT IS SLEEPING. NO SIGNS OF DISTRESS ON ROOM AIR. HE AMBULATES BUT L LEG IS WEAK DO TO CELLULITIS AND PAIN. SKIN IS INTACT. PATIENT IS A MED SURGE PATIENT. IV ON L HAND 22G INFUSING NS AT 100. IV IS CLEAN,DRY AND INTACT. BED IN LOW POSITION. CALL LIGHT WITHIN REACH. WILL CONTINUE TO MONITOR THE PATIENT
[2017-11-11 08:00] VITALS: BP 132/73
[2017-11-11] MEDS ORDERED: PIPER/TAZO 3.375GM/D5W PREMIX 50 ML IV SCH (08:00)
[2017-11-11] MEDS ORDERED: oxyCODONE 5 MG TAB PO SCH (09:00)
[2017-11-11] MEDS: LOSARTAN 50 MG TAB PO SCH (10:02)
[2017-11-11] MEDS: PIOGLITAZONE 30 MG TAB PO SCH (10:02)
[2017-11-11] MEDS: glipiZIDE 10 MG TAB PO SCH ×2 (10:03→21:48)
[2017-11-11] MEDS: ENOXAPARIN 40 MG/0.4 ML SYR SUBQ SCH (10:03)
[2017-11-11] MEDS: NAPROXEN 500 MG TAB PO SCH (10:03)
--- NOTE | 2017-11-11 10:04 | NUR ---
HUNG A NEW BAG OF NORMAL SALINE. ZOSYN STARTED AT 100ML/HR. IV IS CLEAN, DRY AND INTACT. ADMINISTERED ALL MEDS. PATIENT TOLERATED WELL. WILL CONTINUE TO MONITOR PATIENT. NO OTHER COMPLAINTS AT THIS TIME.
--- NOTE | 2017-11-11 10:18 | NUR ---
SCREEN FOR LLE CELLULITIS PER CHARGE NURSE REQUEST, NO ACTIVE OPEN WOUND, LLE ERYTHEMA, +2 DORSAL FOOT EDEMA, SKIN DRY AND INTACT. RECOMMEND TO CONTINUE IV ANTIBIOTIC AND APPLY HYDRAGUARD TO BLE DRYNESS BID, PT. VERBALIZES UNDERSTANDING AND PRIMARY RN AT BEDSIDE ALSO NOTIFY.
--- NOTE | 2017-11-11 10:34 | NUR ---
ZOSYN INFUSION IS DONE. NORMAL SALINE INFUSING 100ML/HR. IV IS CLEAN, DRY AND INTACT. WILL CONTINUE TO MONITOR
--- NOTE | 2017-11-11 11:22 | NUR ---
PATIENT HAS BEEN SCREENED AND CATEGORIZED MODERATE NUTRITION RISK. PATIENT WILL BE SEEN WITHIN 3-5 DAYS OF ADMISSION. 11/13/17 -11/15/[address]
--- NOTE | 2017-11-11 11:27 | NUR ---
GAVE PATIENT SUPPLIES TO CLEAN HIMSELF. PATIENT ABLE TO DO ADLS BUT NEEDS TO DO IT IN BED,. PATIENT HAS WEAKNESS AND HX OF FALLS SO ITS BEST TO STAY IN BED. WILL CONTINUE TO MONITOR THE PATIENT
[2017-11-11] MEDS: oxyCODONE 10 MG TABER PO SCH ×2 (12:44→17:12)
[2017-11-11] MEDS: CLINDAMYCIN PHOS 600MG/D5W PM 50 ML IV SCH ×2 (12:44→17:12)
--- NOTE | 2017-11-11 12:44 | NUR ---
ADMINISTERED CLINDAMYCIN AT 100ML/HR. IV IS CLEAN, DRY AND INTACT. WILL CONTINUE TO MONITOR THE PATIENT.
--- NOTE | 2017-11-11 12:49 | NUR ---
ADMINISTERED MEDS. PATIENT TOLERATED WELL. BED IN LOW POSITION. CALL LIGHT WITHIN REACH. IV IS CLEAN, DRY AND INTACT,
--- NOTE | 2017-11-11 12:54 | NUR ---
1150 SPOKE WITH PT AT BEDSIDE AND HE STATED THAT HE IS IN AGREEMENT WITH HOME PHYSICAL THERAPY. STATES THAT HE IS CURRENTLY TRYING TO MOVE INTO A [facility] TO BE CLOSER TO HIS DAUGHTER. PT HAS HAD PHYSICAL THERAPY BEFORE IN VARIOUS TYPES OF SETTINGS HE HAS A HISTORY OF HAVE A CERVICAL SURGERY AND NOW HAS LOWER BACK ISSUES.
--- NOTE | 2017-11-11 13:14 | NUR ---
CLINDAMYCIN INFUSION DONE. IV IS CLEAN, DRY AND INTACT. NS INFUSING AT 100. WILL CONTINUE TO MONITOR THE PATIENT.
--- NOTE | 2017-11-11 13:30 | NUR ---
GAVE BEDSIDE REPORT TO SAMUEL. ENDORSED PATIENT IN STABLE CONDITION.
--- NOTE | 2017-11-11 13:31 | NUR ---
RECEIVED REPORT FROM JOSE AT BEDSIDE FOR CONTINUITY OF CARE.
[2017-11-11] MEDS: HYDRAGUARD CREAM TP SCH (13:56)
--- NOTE | 2017-11-11 13:56 | NUR ---
ADMINISTERED HYDRAGUARD TO BLE. PT TOLERATED WELL. PT GOT OUT OF BED AND USED BATHROOM. STEADY GAIT. VOIDED 350ML OF CLEAR URINE. PT ASKED TO HAVE CELL PHONE CHARGED AT NURSING STATION. PLACED PHONE AT STATION TO CHARGE. NO SIGNS OF DISTRESS. CALL LIGHT WITHIN REACH. WILL CONTINUE TO MONITOR.
--- NOTE | 2017-11-11 15:01 | NUR ---
[place] [facility] [place] [phone] AND TO USE [facility] PHONE NUMBER [phone]
[2017-11-11 16:00] VITALS: BP 120/74
--- NOTE | 2017-11-11 17:33 | NUR ---
Dinkey Mechanic Note: I faxed inquiry to [facility], fax . I verified with patient his phone number . Per Martha from [facility] , they will send a nurse to patient's home post discharge, a day or two days after discharge date.
--- NOTE | 2017-11-11 19:28 | NUR ---
ENDORSED PT TO SLOT EDITOR NURSE MAVIS AT BEDSIDE FOR CONTINUITY OF CARE. PT IN STABLE CONDITION.
[2017-11-11 20:00] VITALS: BP 123/73
--- NOTE | 2017-11-11 20:00 | NUR ---
SEEN PT AWAKE, SITTING ON THE EDGE OF THE BED. INITIAL ASSESSMENT DONE. VITAL SIGNS CHECKED. PT DENIES ANY PAIN BUT A LITTLE ABDOMINAL DISCOMFORT. PT ASKING FOR PROTONIX AND HE SAID HE TAKES IT AT HOME. TOLD HIM, WILL CHECK HIS CHART. PT SAID HE JUST HAD BM. SAFETY ENSURED. ENCOURAGED TO ELEVATE HIS LEGS. PT VERBALIZED UNDERSTANDING.
--- NOTE | 2017-11-11 20:26 | NUR ---
PAGED DR JEREZ REGARDING PT ASKING FOR PROTONIX AND SOMETHING FOR GAS. WILL AWAIT FOR CALL BACK.
--- NOTE | 2017-11-11 20:35 | NUR ---
SPOKE TO DR JEREZ REGARDING PT CONCERNS. ORDERS RECEIVED AND ENTERED.
[2017-11-11] MEDS ORDERED: SIMETHICONE 80 MG TAB.CHEW PO PRN (20:50)
[2017-11-11] MEDS ORDERED: oxyCODONE 10 MG TABER PO SCH (21:00)
[2017-11-11] MEDS ORDERED: PANTOPRAZOLE 40 MG TABEC PO SCH (21:30)
--- NOTE | 2017-11-11 21:50 | NUR ---
SEEN PT WATCHING TV. BLOOD SUGAR CHECKED:111. NO COVERAGE NEEDED. PT STATES HE HAS HEADACHE NOW. OFFERED TYLENOL BUT SAID IT WON'T WORK. OFFERED NORCO, AND SAID "OK" THAT ONE WORKS. MEDICATIONS GIVEN W/ TEACHINGS. PT VERBALIZED UNDERSTANDING. PT SAID DECK BUILDER CHANGED HIS LINENS AND ARRANGED HIS BED. PT ASKING FOR SNACKS. WILL GIVE SNACKS PER DIET.
[2017-11-11] MEDS: HYDROcodone/APAP 5/325 MG 1 TAB TAB PO PRN (22:04)
--- NOTE | 2017-11-12 00:20 | NUR ---
SEEN PT AWAKE TALKING TO HIS ROOMMATE. PT ASKED IF HE CAN GO TO THE BATHROOM FIRST BEFORE IV ATB IS GIVEN. . TOLD PT, "YES." IV ANTIBIOTIC GIVEN ORDERED. TEACHINGS GIVEN. URINAL EMPTIED. PT DENIES ANY DISCOMFORT. WILL CONTINUE TO MONITOR.
[2017-11-12] MEDS: CLINDAMYCIN PHOS 600MG/D5W PM 50 ML IV SCH ×3 (00:22→11:36)
[2017-11-12] MEDS: HYDRAGUARD CREAM TP SCH ×2 (00:28→13:35)
--- NOTE | 2017-11-12 02:35 | NUR ---
PT CALLED SAYING HE NEEDS A NEW GOWN, SOCKS AND NEEDS TO BE CLEANED UP. PT STATES HE SPILLED HIS URINE ON HIS GOWN. WILL ASSIST W/ CLEANING UP.
[2017-11-12 04:45] VITALS: BP 141/85
--- NOTE | 2017-11-12 04:45 | NUR ---
SEEN PT AWAKE. VITAL SIGNS CHECKED. PT DENIES ANY PAIN AT THIS TIME. URINAL EMPTIED.
--- NOTE | 2017-11-12 06:45 | NUR ---
PT COMPLAINING OF BEING COLD WHICH CAUSES HIM TO HAVE CHEST PAIN. WARM BLANKET GIVEN PER REQUEST. THERMOSTAT ADJUSTED. OFFERED NORCO FOR PAIN BUT REFUSED AND WANTS IT LATER AFTER BREAKFAST. IV MEDICATION GIVEN W/ TEACHINGS. BLOOD SUGAR CHECKED:89. NO COVERAGE NEEDED. PT WANTS HYDRAGUARD APPLIED ON THE BACK OF HIS NECK. PT ASKED FOR SOME HEAT PACK.
[2017-11-12] MEDS: BLOOD GLUCOSE MONITORING 1 DEV DEV FS SCH ×2 (06:56→11:46)
--- NOTE | 2017-11-12 07:00 | NUR ---
RECEIVED BEDSIDE REPORT FROM BRICK LOADER NURSE. PATIENT IS AWAKE, ALERT AND ORIENTED X4. NO SIGNS OF DISTRESS ON ROOM AIR. HE AMBULATES BUT HIS L LEG IS WEAK AND HAS A HX OF FALLS. AMBULATE W ASSISTANCE. FALL RISK PROTOCOL IN PLACE. L LEG HAS CELLULITIS. DR APONTE MARKED IT AND IT HAS NOT GOTTEN WORSE. MED SURGE PATIENT. IV ON L HAND 22G INFUSING NS AT 100. CLEAN, DRY AND INTACT. PATIENT KEEPS SCRATCHING BACK AND NOW THERE IS SCABS. TOLD HIM NOT TO SCRATCH ONLY PAT. PATIENT VERBALIZED UNDERSTANDING. BED IN LOW POSITION. CALL LIGHT WITHIN REACH. URINAL AT BEDSIDE. WILL CONTINUE TO MONITOR THE PATIENT
[2017-11-12 07:26] LABS: BASOPHILS % (AUTO) 0.3 % (0.0-2.0); HEMATOCRIT 36.5 % (36-52); HEMOGLOBIN 11.7 g/dL (12.0-18.0); LYMPHOCYTES # (AUTO) 0.8 K/uL (2.0-11.5); LYMPHOCYTES % (AUTO) 32.6 % (20.5-51.1); MEAN CORPUSCULAR HEMOGLOBIN 26 pg (27-31); MEAN CORPUSCULAR HGB CONC 32 g/dL (33-37); MEAN CORPUSCULAR VOLUME 80.2 fL (80-94); MONOCYTES # (AUTO) 0.4 K/uL (0.8-1.0); MONOCYTES % (AUTO) 16.5 % (1.7-9.3); NEUTROPHILS # (AUTO) 1.2 K/uL (1.8-7.7); NEUTROPHILS % (AUTO) 49.6 % (42.2-75.2); PLATELET COUNT (AUTO) 150 K/uL (140-450); RED BLOOD CELL COUNT(AUTO) 4.55 MIL/uL (4.20-6.10); RED CELL DISTRIBUTION WIDTH 16.9 % (11.6-13.7); WHITE BLOOD COUNT (AUTO) 2.5 K/uL (4.8-10.8)
[2017-11-12 07:58] LABS: ALBUMIN 3.7 g/dL (3.4-5.0); TOTAL BILIRUBIN 0.2 mg/dL (0.0-1.0)
[2017-11-12 08:00] VITALS: BP 129/75
[2017-11-12] MEDS: glipiZIDE 10 MG TAB PO SCH (09:10)
[2017-11-12] MEDS: PIOGLITAZONE 30 MG TAB PO SCH (09:10)
[2017-11-12] MEDS: LOSARTAN 50 MG TAB PO SCH (09:10)
[2017-11-12] MEDS: oxyCODONE 10 MG TABER PO SCH ×2 (09:10→13:33)
--- NOTE | 2017-11-12 09:12 | NUR ---
ADMINISTERED MEDS. PATIENT TOLERATED WELL. WILL CONTINUE TO MONITOR THE PATIENT. BED IN LOW POSITION, CALL LIGHT WITHIN REACH
[2017-11-12] MEDS: ENOXAPARIN 40 MG/0.4 ML SYR SUBQ SCH (09:19)
--- NOTE | 2017-11-12 10:15 | NUR ---
FAXED [place] TO [facility] [place] [phone] PHONE NICOLÁS [phone]
--- NOTE | 2017-11-12 11:47 | NUR ---
ADMINISTERED MEDS. IV IS CLEAN, DRY AND INTACT. BED IN LOW POSITION. CALL LIGHT WITHIN REACH. WILL CONTINUE TO MONITOR THE PATIENT,
--- NOTE | 2017-11-12 12:13 | NUR ---
PATIENT AMBULATED W PT. GAIT IS STEADY W WALKER.
[2017-11-12] MEDS: NACL 0.9% 1,000 ML IV SCH (13:00)
--- NOTE | 2017-11-12 14:00 | NUR ---
PATIENT SITTING IN BED. NO SIGNS OF DISTRESS. WILL CONTINUE TO MONITOR THE PATIENT
--- NOTE | 2017-11-12 14:22 | NUR ---
FAXED ORDER FOR FWW TO [facility] [place] [phone]. SPOKE WITH NICOLÁS AND SHE WILL HAVE FWW DELIVERED TO THE HOSPITAL. I INFORMED JOSE VILLEDA. THE HOME HEALTH FOR [email or web address]. IS [facility] [phone]. CHADWICK FROM [facility] INFORMED. THE FWW WILL BE DELIVERED TO THE HOSPITAL BY [facility]. [facility] FOR [facility] [phone].
--- NOTE | 2017-11-12 15:25 | NUR ---
EDUCATED PATIENT AND DAUGHTER ON DISEASE PROCESS, ABN S/SX, WHEN TO GO TO THE NEAREST ER, MEDS, GAVE PRESCRIPTION, EDUCATED ON FOLLOW UP W PCP. PATIENT VERBALIZED UNDERSTANDING. SIGNED ALL PAPERWORK. TOLD HIM THAT PHYSICAL THERAPY WILL BE DONE TOMORROW W [facility], THEY WILL GIVE HIM A CALL/ REMOVED ID BANDS. REMOVED IV, TIP IS INTACT. PATIENT LEFT IN WHEELCHAIR W DAUGHTER IN STABLE CONDITION.
--- NOTE | 2017-11-12 15:41 | NUR ---
PHYSICAL THERAPY CO-SIGN The Physical Therapy Progress Notes documented by Director Of Reservations have been reviewed. I CONCUR W/NURSERY TECHNICIAN NOTE; CONT PER TX PLAN Reviewed/Co-Signed by: Sharon Recinos, PT Documentation Done by: JASMIN GUTIERREZ PTA Addendum: 11/12/17 at 1541 by Sharon Recinos PT Amended: Links added.
== END 2017-11-12 15:25 | disposition home health service (06) | DRG 872 ==
LOC: MED 14:12 → MTU 19:03
PROVIDERS: ADMIT Internal Medicine Pulmonary Disease; ATTEND Internal Medicine Pulmonary Disease
DX: A41.9 Sepsis, unspecified organism (principal); L03.116 Cellulitis of left lower limb; F11.20 Opioid dependence, uncomplicated; I10 Essential (primary) hypertension; E78.5 Hyperlipidemia, unspecified; E11.9 Type 2 diabetes mellitus without complications; G89.29 Other chronic pain; W18.30XA Fall on same level, unspecified, initial encounter; M54.5 Low back pain; Z88.6 Allergy status to analgesic agent; Z79.84 Long term (current) use of oral hypoglycemic drugs; Z79.899 Other long term (current) drug therapy; Z85.46 Personal history of malignant neoplasm of prostate; Y93.89 Activity, other specified; Y92.89 Other specified places as the place of occurrence of the external cause; Y99.8 Other external cause status
CPT/HCPCS: 36415; 70450; 71045; 80048; 80053; 81001; 82948; 83735; 84484; 85025; 87040; 87081; 87086; 93005; 93971; 96361; 96365; 96375; 97110; 97116; 97530; 99285; J0696; J1170; J1650; J1815; J2543; J3490; J7030; J7060; Q0092

== ENCOUNTER 2018-02-20 18:00 | Emergency (ER) | payer MEDICARE, OTHER ==
[~2018-02-20] VITALS: Ht 188 cm; Wt 115.2 kg
[~2018-02-20 18:00] MED LIST changes: +GLIP10TA3 PO; -HYDR-2726 PO; +LOSA50TA27 PO; +LOVA20TA8 PO; -NAPR-54 PO; +OXYC5TAB4 PO
[2018-02-20 18:15] VITALS: BP 137/94
[2018-02-20 18:46] VITALS: BP 137/94
== END 2018-02-20 18:47 | disposition home or self-care (01) ==
LOC: MED 18:00
DX: R35.0 Frequency of micturition (principal); R03.0 Elevated blood-pressure reading, without diagnosis of hypertension; E11.9 Type 2 diabetes mellitus without complications; I10 Essential (primary) hypertension; Z88.5 Allergy status to narcotic agent; Z79.84 Long term (current) use of oral hypoglycemic drugs; Z79.899 Other long term (current) drug therapy
CPT/HCPCS: 81002; 82948; 99283

== ENCOUNTER 2018-06-07 13:45 | Emergency (ER) | payer MEDICARE, MEDICAID ==
[~2018-06-07] VITALS: Ht 188 cm; Wt 115.7 kg
[~2018-06-07 13:45] MED LIST changes: -LOSA50TA27 PO; +LOSA50TA66 PO
[2018-06-07 13:56] VITALS: BP 150/84
--- NOTE | 2018-06-07 14:04 | NUR ---
PT AMBULATES TO BED 11
--- NOTE | 2018-06-07 14:14 | NUR ---
PATIENT PRESENTS TO ED WITH c/o headche, generalized bodyaches, ble pain, sinus pain x 2-3 days ambulatory with steady gait, full clear speech, no facial asymmetry denies recent injury . DENIES N/V/D; SKIN IS PINK/WARM/DRY; AAOX4 WITH EVEN AND STEADY GAIT; LUNGS CLEAR BL; HR EVEN AND REGULAR; PT DENIES ANY FEVER, CP, SOB, OR COUGH AT THIS TIME; PATIENT STATES PAIN OF 9/10 AT THIS TIME; VSS; PATIENT POSITIONED FOR COMFORT; HOB ELEVATED; BEDRAILS UP X2; BED DOWN. ER MD MADE AWARE OF PT STATUS.
[2018-06-07] MEDS ORDERED: NACL 0.9% 1,000 ML IV ONE (14:38)
[2018-06-07] MEDS ORDERED: METOCLOPRAMIDE 10 MG/2 ML INJ VIAL IVP ONE (14:40)
[2018-06-07] MEDS ORDERED: diphenhydrAMINE 50 MG/ML VIAL IVP ONE (14:40)
--- NOTE | 2018-06-07 14:46 | NUR ---
PT TAKEN TO CT VIA MANNIE
--- NOTE | 2018-06-07 15:30 | NUR ---
IV initiated to R hand, 22G . Flushed and patent.
[2018-06-07 17:27] VITALS: BP 150/84
--- NOTE | 2018-06-07 17:29 | NUR ---
Patient discharged with v/s stable. Written and verbal after care instructions given and explained. Patient alert, oriented and verbalized understanding of instructions. Ambulatory with steady gait. All questions addressed prior to discharge. ID band removed. Patient advised to follow up with PMD. Rx of Sudafed and Motrin given. Patient educated on indication of medication including possible reaction and side effects. Opportunity to ask questions provided and answered.
== END 2018-06-07 17:29 | disposition home or self-care (01) ==
LOC: MED 13:45
DX: J32.9 Chronic sinusitis, unspecified (principal); E11.9 Type 2 diabetes mellitus without complications; I10 Essential (primary) hypertension; Z79.84 Long term (current) use of oral hypoglycemic drugs; Z79.899 Other long term (current) drug therapy; Z88.5 Allergy status to narcotic agent
CPT/HCPCS: 70450; 96374; 96375; 99284; J1200; J2765; J7030

== ENCOUNTER 2019-01-18 19:13 | Emergency (ER) | payer BC ==
[~2019-01-18] VITALS: Ht 188 cm; Wt 114.8 kg
[2019-01-18 19:15] VITALS: BP 135/74
--- NOTE | 2019-01-18 19:27 | NUR ---
PT AMBULATED TO ER BED 04
--- NOTE | 2019-01-18 19:38 | NUR ---
68 YO M BIB SELF PRESENTS TO ED C/O 910 SHARP BAND LIKE WILSON X 4 DAYS THAT COMES AND GOES WITH NAUSEA AND BLURRY VISION. PT ALSO C/O BILATERAL MUSCULAR RIB PAIN THAT PT STATES ACCOMPANIES HIS WILSON. PT DENIES VOMITING, SENSITIVITY TO LIGHT, SOB OR CP. PT DOES ADMIT TO SIGNIFICANT FAMILY HX OF BRAIN ANNEURYSMS. PT TRIED TAKING OXYCODONE, EXTRA STRENGTH TYLENOL AND A MUSCLE RELAXER WHICH PROVIDED TEMPORARY RELIEF. -- PT AWAKE, A/O X 4, CALM, COOPERATIVE. ANSWERS QUESTIONS IN FULL, CLEAR SENTENCES. BEHAVIOR AGE APPROPRIATE. -- SKIN PINK, WARM, DRY. BREATHING EVEN, UNLABORED. -- HAND CORPORATE LEGAL MANAGER EQUAL, STRONG. WEAKNESS NOTED TO LEFT SIDE LEG; PT REPORTS S/E NEUROPATHY. EYES PERRLA. PMH-- DM, DIABETIC NEUROPATHY, HTN
--- NOTE | 2019-01-18 20:12 | NUR ---
PT AMBULATES TO RR WITH STEADY GAIT. URINE SAMPLE PROVIDED.
--- NOTE | 2019-01-18 21:29 | NUR ---
EMT PERFORMING EKG AT BEDSIDE.
--- NOTE | 2019-01-18 21:33 | NUR ---
DR. BROWN EVALUATING AT BEDSIDE.
[2019-01-18] MEDS ORDERED: ASPIRIN 81 MG TAB.CHEW PO ONE (21:45)
[2019-01-18] MEDS ORDERED: ONDANSETRON 4 MG/2 ML VIAL IVP ONE (21:45)
[2019-01-18] MEDS ORDERED: NITROGLYCERIN 0.4 MG TAB SL ONE (21:45)
--- NOTE | 2019-01-18 22:04 | NUR ---
XRAY AT BEDSIDE.
--- NOTE | 2019-01-18 22:20 | NUR ---
LABS COLLECTED BY RN AT BEDSIDE.
[2019-01-18 22:33] LABS: HEMATOCRIT 43.8 % (36-52); HEMOGLOBIN 13.9 g/dL (12.0-18.0); MEAN CORPUSCULAR HEMOGLOBIN 27 pg (27-31); MEAN CORPUSCULAR HGB CONC 32 g/dL (33-37); MEAN CORPUSCULAR VOLUME 83.8 fL (80-94); PLATELET COUNT (AUTO) 203 K/uL (140-450); RED BLOOD CELL COUNT(AUTO) 5.22 MIL/uL (4.20-6.10); RED CELL DISTRIBUTION WIDTH 16.4 % (11.6-13.7); WHITE BLOOD COUNT (AUTO) 4.8 K/uL (4.8-10.8)
--- NOTE | 2019-01-18 22:35 | NUR ---
CT W/CONTRAST CONSENT FORM SIGNED AND WITNESSED.
[2019-01-18] MEDS ORDERED: fentaNYL 0.05 MG/ML VIAL IVP ONE (22:40)
[2019-01-18 22:42] LABS: ANION GAP 10.9 (8-16); CARBON DIOXIDE 30.1 mmol/L (21-32); CREATININE 1.4 mg/dL (0.7-1.3)
[2019-01-18 22:48] LABS: ALBUMIN 4.3 g/dL (3.4-5.0); TOTAL BILIRUBIN 0.3 mg/dL (0.0-1.0)
[2019-01-18] MEDS ORDERED: KETOROLAC 15 MG/ML VIAL IVP ONE (22:50)
[2019-01-18 22:52] LABS: PROTHROMBIN TIME 9.9 secs (10.8-13.4)
[2019-01-18 23:24] LABS: EOSINOPHILS % (MANUAL) 3 % (0-4); LYMPHOCYTES % (MANUAL) 30 % (20-46); MONOCYTES % (MANUAL) 6 % (5-12)
--- NOTE | 2019-01-18 23:31 | NUR ---
PT TAKEN TO CT VIA WC.
[2019-01-18] MEDS ORDERED: NACL 0.9% 1,000 ML IV ONE (23:45)
--- NOTE | 2019-01-18 23:47 | NUR ---
PT RETURNED FROM CT VIA WC.
--- NOTE | 2019-01-19 00:17 | NUR ---
PT REPORTS FEELING BETTER. REPORTS 3/10 PAIN. REQUESTING SNACK. CRACKERS PROVIDED.
[2019-01-19] MEDS ORDERED: fentaNYL 0.05 MG/ML VIAL IVP ONE ×2 (01:00→02:50)
--- NOTE | 2019-01-19 01:09 | NUR ---
PT IS AWAKE, A/O X 4. RESTING COMFORTABLY IN BED. PT IS PLEASANT, TALKATIVE. PT STATES THAT HIS PAIN COMES AND GOES. REPORTS TEMPORARY RELIEF WITH MEDICATION BUT PAIN COMES BACK. DR. BROWN MADE AWARE.
--- NOTE | 2019-01-19 02:20 | NUR ---
PT STATES PAIN RETURNED / TO ABDOMEN AND WILSON. DR. BROWN MADE AWARE. NEW ORDERS RECEIVED.
[2019-01-19] MEDS ORDERED: NACL 0.9% 1,000 ML IV ONE (02:50)
--- NOTE | 2019-01-19 03:45 | NUR ---
PT REPORTS PAIN IS RELIEVED BY FENTANYL FOR A FEW MINS BUT THEN IT COMES BACK. PT STATES THAT WHEN HIS SIDE PAIN COMES, HIS HEADACHE RETURNS ALSO. PT REQUESTING TYLENOL FOR WILSON. DR. BROWN MADE AWARE. ORDERS RECEIVED.
[2019-01-19] MEDS ORDERED: ACETAMINOPHEN 325 MG TAB PO ONE (03:50)
--- NOTE | 2019-01-19 04:00 | NUR ---
PT WAS ACCEPTED TO [facility]. WAITING FOR BED ASSIGNMENT PER BENY, CAREER DEVELOPMENT COUNSELOR FROM [facility]. WILL CONTACT SOON PT HAS AN ASSIGNED BED.
--- NOTE | 2019-01-19 05:13 | NUR ---
SPOKE TO BENY FROM [facility] REGARDING THE STATUS OF THE BED ASSIGNMENT. BENY STATED OF 20 MIN. AGO NO BEDS, WILL TRY AGAIN AND CALL BACK. [employer] # IS [phone]
--- NOTE | 2019-01-19 05:30 | NUR ---
PT SLEEPING COMFORTABLY IN BED WITH VSS. SKIN PINK, WARM, DRY. BREATHING EVEN, UNLABORED. NO COMPLAINTS AT THIS TIME.
--- NOTE | 2019-01-19 05:46 | NUR ---
PT C/O BEING EXTREMELY HUNGRY. PT STATES "I HAVEN' EATEN SINCE 3 PM YESTERDAY. IF I DON'T GET SOMETHING TO EAT I AM GOING TO GET UP AND LEAVE." DR. BROWN MADE AWARE. ERMD TO SPEAK TO PT.
--- NOTE | 2019-01-19 05:55 | NUR ---
DR. LEE STATES PT MAY HAVE CLEAR LIQUIDS. PT GIVEN JUICE AND JELLO.
[2019-01-19] MEDS ORDERED: HYDROcodone/APAP 10/325 MG 1 TAB TAB PO SCH (06:00)
--- NOTE | 2019-01-19 06:20 | NUR ---
CALLED BENY FROM [facility] REGARDING PENDING BED ASSIGNMENT, NO ANSWER, WILL CALL AGAIN. NADYA FARRAR MADE AWARE.
--- NOTE | 2019-01-19 07:04 | NUR ---
Patient to be transferred to [facility]. Is being transferred due to insurance requirements. Receiving facility has accepting physician and available space. ER physician has signed transfer form. Patient or responsible republican has agreed to transfer and signed form. Patient belongings inventoried and will be sent with patient. Copy of nursing notes, lab reports, EKG, Physicians Orders and X-rays to be sent with patient. Report called to CHRISTIANA Villafuerte at receiving facility. [facility] ambulance service has been called for transfer. ETA is 60 mins.
--- NOTE | 2019-01-19 07:27 | NUR ---
REPORT GIVEN TO CHRISTIANA MONZON. TRANSFER OF CARE AT THIS TIME.
--- NOTE | 2019-01-19 07:30 | NUR ---
CHECK PT. AWAKE, ALERT. ABLE TO MAKE NEEDS KNOWN. NO S/S OF RESPIRATORY DISTRESS NOTED. VITALS STABLE. COMPLAINED HE IS HUNGRY. OFFERED BREAKFAST TRAY TO PT.
--- NOTE | 2019-01-19 07:53 | NUR ---
TRANSPORTATION TEAM CAME IN, REPORT GIVEN. PT VITALS STABLE.
[2019-01-19 07:54] VITALS: BP 123/60
== END 2019-01-19 07:53 | disposition short-term general hospital (02) ==
LOC: MED 19:13
DX: K85.90 Acute pancreatitis without necrosis or infection, unspecified (principal); R10.30 Lower abdominal pain, unspecified; R51 Headache; I10 Essential (primary) hypertension; E11.40 Type 2 diabetes mellitus with diabetic neuropathy, unspecified; Z79.84 Long term (current) use of oral hypoglycemic drugs; Z79.899 Other long term (current) drug therapy; Z88.5 Allergy status to narcotic agent
CPT/HCPCS: 36415; 71045; 71260; 74177; 80053; 82150; 83690; 84484; 85025; 85610; 85730; 93005; 96374; 96375; 96376; 99285; J1885; J2405; J3010; J7030; Q0092

== ENCOUNTER 2019-11-13 13:19 | Emergency (ER) | payer MEDICARE, MEDICAID ==
[~2019-11-13] VITALS: Ht 182.9 cm; Wt 116.6 kg
[~2019-11-13 13:19] MED LIST changes: -PIOG30TA PO; +PIOG30TA51 PO
--- NOTE | 2019-11-13 13:31 | NUR ---
Rosalina piedra in [facility] - 11/13/19 at 1340 by [email or web address] Patient transferred to bed 4 via wheelchair by nurse. RN evaluating patient at bedside.
--- NOTE | 2019-11-13 13:33 | NUR ---
Patient transferred to bed 2 via wheelchair by nurse. RN evaluating patient at bedside.
[2019-11-13 13:40] VITALS: BP 173/102
--- NOTE | 2019-11-13 13:50 | NUR ---
PT C/O PROGRESSIVELY WORSENED LOWER BACK PAIN FOR ONE WEEK. PT REPORTS HE HAS CHRONIC BACK PAIN BUT IT IS GETTING WORSE FOR THE PAST ONE WEEK. ALSO C/O SORE THROAT, NAUSEA, AND CONSTIPATION. DENIES COUGH, CHEST PAIN, SOB, VOMITING, DIARRHEA, OR SICK CONTACT. TAISHA LOWER EXTREMETIES +2 PITTING EDEMA NOTICED. ORAL TEMP 100 UPON TRIAGE. HR EVEN AND REGULAR; PATIENT STATES PAIN OF 8/10 AT THIS TIME; VSS; PATIENT POSITIONED FOR COMFORT; HOB ELEVATED; BEDRAILS UP X1; BED DOWN. ER MD MADE AWARE OF PT STATUS.
[2019-11-13] MEDS: KETOROLAC 60 MG/2 ML VIAL IM ONE (14:04)
--- NOTE | 2019-11-13 15:11 | NUR ---
Dr. Mahoney is evaluating the patient at bedside.
--- NOTE | 2019-11-13 15:53 | NUR ---
Patient taken to CT scan via gurney by [employer].
[2019-11-13] MEDS: fentaNYL citrate 0.05 MG/ML VIAL IVP ONE ×2 (15:54→18:56)
[2019-11-13] MEDS: ONDANSETRON 4 MG/2 ML VIAL IVP ONE (15:54)
--- NOTE | 2019-11-13 15:55 | NUR ---
BLOOD OBTAINED, IV 20G PLACED ON RIGHT HAND. BLOOD GIVEN TO LAB
[2019-11-13 16:02] LABS: BILIRUBIN,URINE NEGATIVE (NEGATIVE); BLOOD, URINE NEGATIVE (NEGATIVE); LEUKOCYTE ESTERASE ,URINE NEGATIVE (NEGATIVE); NITRITE, URINE NEGATIVE (NEGATIVE); UGLUCOSE NEGATIVE (NEGATIVE)
[2019-11-13 16:04] LABS: BASOPHILS % (AUTO) 0.1 % (0.0-2.0); EOSINOPHILS # (AUTO) 0.1 K/uL (0-0.4); EOSINOPHILS % (AUTO) 1.2 % (0.0-4.0); HEMATOCRIT 36.6 % (36-52); HEMOGLOBIN 11.9 g/dL (12.0-18.0); LYMPHOCYTES # (AUTO) 1.3 K/uL (2.0-11.5); LYMPHOCYTES % (AUTO) 23.2 % (20.5-51.1); MEAN CORPUSCULAR HEMOGLOBIN 27 pg (27-31); MEAN CORPUSCULAR HGB CONC 33 g/dL (33-37); MEAN CORPUSCULAR VOLUME 83.7 fL (80-94); MONOCYTES # (AUTO) 0.3 K/uL (0.8-1.0); NEUTROPHILS # (AUTO) 3.8 K/uL (1.8-7.7); NEUTROPHILS % (AUTO) 69.5 % (42.2-75.2); PLATELET COUNT (AUTO) 206 K/uL (140-450); RED BLOOD CELL COUNT(AUTO) 4.38 MIL/uL (4.20-6.10); RED CELL DISTRIBUTION WIDTH 16.7 % (11.6-13.7); WHITE BLOOD COUNT (AUTO) 5.4 K/uL (4.8-10.8)
[2019-11-13 16:04] LABS: APPEARANCE,URINE CLEAR (CLEAR); COLOR,URINE YELLOW (YELLOW)
[2019-11-13 16:17] LABS: ANION GAP 13.4 (8-16); CARBON DIOXIDE 28.3 mmol/L (21-32); CREATININE 1.5 mg/dL (0.6-1.3); POTASSIUM 3.7 mmol/L (3.5-5.1); TOTAL BILIRUBIN 0.3 mg/dL (0.0-1.0)
--- NOTE | 2019-11-13 17:06 | NUR ---
FOOD, WATER, AND BLANKET PROVIDED TO PT AT BEDSIDE.
[2019-11-13 18:58] VITALS: BP 128/71
--- NOTE | 2019-11-13 18:58 | NUR ---
Patient discharged with v/s stable. Written and verbal after care instructions given and explained. Patient alert, oriented and verbalized understanding of instructions. Ambulatory with steady gait. All questions addressed prior to discharge. ID band removed. Patient advised to follow up with PMD. Rx of Flexeril, Lidoderm 5% transdermal patch, and Naprosyn given. Patient educated on indication of medication including possible reaction and side effects. Opportunity to ask questions provided and answered.
== END 2019-11-13 18:58 | disposition home or self-care (01) ==
LOC: MED 13:19
DX: G89.29 Other chronic pain (principal); M54.5 Low back pain; R51 Headache; R60.0 Localized edema; I10 Essential (primary) hypertension; E11.9 Type 2 diabetes mellitus without complications; Z79.899 Other long term (current) drug therapy; Z79.84 Long term (current) use of oral hypoglycemic drugs
CPT/HCPCS: 36415; 74176; 80053; 81003; 85025; 96372; 96374; 96375; 96376; 99284; J1885; J2405; J3010